=== PATIENT | male | born 1955 | race Caucasian/White ===

== ENCOUNTER → 2017-11-03 18:03 | Outpatient (CLI) | payer OTHER, SELFPAY ==
--- NOTE | 2017-11-03 18:11 | DI.RAD.S_ITS ---
PROCEDURE: XR HAND RT MIN 3V INDICATIONS: fall TECHNIQUE: 3 views of the hand(s) acquired. COMPARISON: None. FINDINGS: Bones: No fractures or dislocations. Carpal bones are normally aligned. No suspicious bony lesions. A relatively large ring overlies the right fourth proximal phalanx. This is the area of reported tenderness according to the x-ray technologist. Soft tissues: No suspicious soft tissue calcifications. IMPRESSION: No fracture found, no dislocation identified but the area of current tenderness is not as well visualized as would be optimal and due to a large ring that cannot be removed superimposed on the middle third diaphysis of the fourth proximal phalanx. Dictated by: Michael Perera M.D. on 11/03/2017 at 18:37 Approved by: Michael Perera M.D. on 11/03/2017 at 18:38
== END ==
PROVIDERS: Family Provider Family Medicine; PCP Family Medicine; Visit Provider Physician Assistant
DX: M79.641 Pain in right hand (principal)
CPT/HCPCS: 73130

== ENCOUNTER 2018-04-04 08:15 | Outpatient (RCR) | payer OTHER, SELFPAY ==
--- NOTE | 2018-03-02 17:05 | PT.OIE ---
Current Diagnoses Complete rotator cuff tear or rupture of left shoulder, not specified as traumatic (03/02/18) Provider Visit Care Team Role Provider Type Ben Chaney MD Family Provider Physician Primary Care Provider Specialty: Family Practice Address: [address] [place] [address], [address] Email: [email or web address] Osvaldo Schwab DO Attending Provider Non-Staff Specialty: Orthopedics Address: [address] [place] [address], [address] Email: Physical Therapy Initial Evaluation PT-OP-A Visit Information Start: 03/02/18 13:51 Freq: Status: Active Protocol: Document 03/02/18 14:41 EA (Rec: 03/02/18 14:41 EA [id number]) Out-Patient Physical Therapy Visit Information Visit Information Visit Type Initial Evaluation Visit Start Time 07:30 Visit Stop Time 08:05 Total Visit Minutes 35 Visit Number 1 Evaluation Information Evaluation Date 03/02/18 PT-OP-B Current Condition Start: 03/02/18 13:51 Freq: Status: Active Protocol: Document 03/02/18 15:40 EA (Rec: 03/07/18 16:10 EA [id number]) Current Condition History of Current Condition Onset Date 3 years ago Current Complaints Left shoulder localized pain History of Current Condition Present condition gradually worsened in the span of three years; unable to performed fitness exercise due to increased of shoulder pain. Patient had a formal PT last year with moderate improvement . Last summer pain intensifies and that brought his condition to ortho specialists and ordered MRI: medical reports reveals partial thickness tear to supra/infraspintus, biceps and slight labral tearing. Prior Treatments and Tests Cortisone shots October/2017 Future Testing and Treatments Planned Second cortisone shot if condition is not resolve through PT Treatment Goals Patient/Caregiver Goals To improve left shoulder stability and strength Prior Functional Status Baseline Function- ADL's Independent Baseline Function- Mobility Independent Baseline Function- Recreation/Hobbies Unable to perform shoulder exercises and push 2 years ago with no shoulder discomfort. Current Functional Impairments (Reported) Functional Limitations- ADL's Independent with slight overhead difficulty occasionally Functional Limitations- Recreation/ Unable to perform shoulder Hobbies exercises and push due to increased in pain. PT-OP-C Subjective Start: 03/02/18 13:51 Freq: Status: Active Protocol: Document 03/02/18 15:40 EA (Rec: 03/07/18 16:10 EA [id number]) OP-PT Subjective Patient Comments Patient Comments Pt would like to improve rotator cuff strength and stability Patient Reported Progress Same PT-OP-E Functional Tests Start: 03/02/18 13:51 Freq: Status: Active Protocol: Document 03/02/18 16:11 EA (Rec: 03/07/18 16:12 EA [id number]) Functional Tests Apley's Scratch Test Action 1: The subject is instructed to touch the opposite shoulder with his/her hand. This motion checks Glenohumeral adduction, internal rotation , horizontal adduction and scapular protraction Action 2: The subject is instructed to place his/her arm overhead and reach behind the neck to touch his/her upper back. This motion checks Glenohumeral abduction, external rotation and scapular upward rotation and elevation. Action 3: The subject puts his/her hand on the lower back and reaches upward as far as possible. This motion checks glenohumeral adduction, internal rotation and scapular retraction with downward rotation Action 1- Left WFL Action 1- Right WFL Action 2- Left T2 Action 2- Right T4 Action 3- Left T6 Action 3- Right T8 PT-OP-J Posture/Palpation/Skin Start: 03/02/18 13:51 Freq: Status: Active Protocol: Document 03/02/18 15:40 EA (Rec: 03/07/18 16:10 EA [id number]) Posture Evaluation Position Standing Evaluation View post/lat Head/C-Spine Posture Forward Head Shoulder Posture (L) Forward (R) Forward Scapula Posture (L) Protracted (R) Protracted Palpation Assessment Location One Palpation Location Supra/infra insertional site, upper traps Palpation Findings Tenderness PT-OP-K Range of Motion Start: 03/02/18 13:51 Freq: Status: Active Protocol: Document 03/02/18 15:40 EA (Rec: 03/07/18 16:10 EA [id number]) Shoulder Goniometric Range of Motion Shoulder Measured in Degrees Left Active Shoulder ROM WFL Yes PT-OP-L Special Tests Start: 03/02/18 13:51 Freq: Status: Active Protocol: Document 03/02/18 15:40 EA (Rec: 03/07/18 16:10 EA [id number]) Special Tests Shoulder Special Tests Yergason's Biceps Test Results negative Empty Can Test Results positive Clunk Test Test Results negative Elevation Impingement Test Results positive Drop Arm Rotator Cuff Test Results negative Neer Impingement Test Results positive Lift-Off Rotator Cuff Test Results neg PT-OP-M Strength Start: 03/02/18 13:51 Freq: Status: Active Protocol: Document 03/02/18 15:40 EA (Rec: 03/07/18 16:10 EA [id number]) Shoulder Strength Shoulder Manual Muscle Testing Left Flexion 4 Good Extension 5 Normal Abduction (C5) 4 Good Adduction 5 Normal External Rotation 4 Good Internal Rotation 4+ Good+ Right Flexion 5 Normal Extension 5 Normal Abduction (C5) 5 Normal Adduction 5 Normal External Rotation 5 Normal Internal Rotation 5 Normal Elbow/Forearm Strength Elbow and Forearm Manual Muscle Testing Left Reason Not Measured WFL PT-OP-Q Treatments Start: 03/02/18 13:51 Freq: Status: Active Protocol: Document 03/02/18 14:41 EA (Rec: 03/02/18 14:43 EA [id number]) Self-Care/Home Management Treatment Education Patient Education Home Exercise Program Pain Management Posture Safety PT-OP-T Assessment and Plan Start: 03/02/18 13:51 Freq: Status: Active Protocol: Document 03/02/18 14:41 EA (Rec: 03/02/18 14:43 EA [id number]) Physical Therapy Assessment Rehab Potential Rehabilitation Potential Good Evaluation Complexity Number of Personal Factors/Comorbidities 1-2 Number of Body Systems Impaired 1-2 Clinical Presentation at Evaluation Stable Impairments Impairments Pain Posture ROM Soft Tissue Mobility Strength Other Concerns Barriers to Rehabilitation Chronicity of the condition Goals Four Impairment Inability to perform shoulder fitness exercises [employer] Goal (LTG) Patient will perform shoulder fitnes exercises safely with no increase in symptoms. LTG Duration 4 wks Three Impairment Impaired head-shoulder posture [employer] Goal (LTG) Patient will demonstrates near to normal head shoulder posture to prevent shoulder dysfunction and muscular imbalance. LTG Duration 4 wks Two Impairment Impaired L shoulder strength Mcc Goal (LTG) Patient will increase L shoulder ABD/Flexors, external rotators, scap retractors by 1/2 grade to improve shoulder overhead function LTG Duration 4 wks One Impairment No HEP in place Mcc Goal (LTG) Patient will comply to recommended HEP and understand safety. LTG Duration 4 wks Progress Towards Goals Progress Towards Goals Progressing Toward Goals Assessment Summary Assessment Pleasant 62 y/o M patient with a referring diagnosis of rotator cuff tear. Today patient demonstrates signs and symptoms consistent with supraspinatus and infraspinatus dysfunction. Due to rotator cuff dysfunction, patient is minimally impaired with shoulder overhead motion with rotation and unable to perform shoulder fitness strengthening exercises due to increase in symptoms. In my professional opinion, patient would benefit with skilled PT to address the aforementioned issues. Physical Therapy Plan Frequency and Duration Frequency of Treatment 2x/Week Duration of Treatment 8 Plan of Care Start Date 03/02/18 Plan of Care End Date 04/27/18 Therapeutic Interventions Therapeutic Interventions Home Exercise Program Joint Mobilizations Manual Therapy Patient/Caregiver Education Self-Care/Home Management Soft Tissue Mobilization Taping Therapeutic Exercises Modalities Cold Pack/Ice Massage Electric Stimulation Hot Packs Ultrasound Next Visit Focus/Plan Next Note Type Treatment Note Next Visit Plan Scap strengthening. Deep tissue massage
--- NOTE | 2018-03-02 17:07 | PT.OPPOC ---
Current Diagnoses Complete rotator cuff tear or rupture of left shoulder, not specified as traumatic (03/02/18) Provider Visit Care Team Role Provider Type Ben Chaney MD Family Provider Physician Primary Care Provider Specialty: Family Practice Address: [address] [place] [address], [address] Email: [email or web address] Osvaldo Schwab DO Attending Provider Non-Staff Specialty: Orthopedics Address: [address] [place] [address], [address] Email: Plan Of Care PT-OP-T Assessment and Plan Start: 03/02/18 13:51 Freq: Status: Active Protocol: Document 03/02/18 14:41 EA (Rec: 03/02/18 14:43 EA [id number]) Physical Therapy Assessment Rehab Potential Rehabilitation Potential Good Evaluation Complexity Number of Personal Factors/Comorbidities 1-2 Number of Body Systems Impaired 1-2 Clinical Presentation at Evaluation Stable Impairments Impairments Pain Posture ROM Soft Tissue Mobility Strength Other Concerns Barriers to Rehabilitation Chronicity of the condition Goals Four Impairment Inability to perform shoulder fitness exercises Usp Goal (LTG) Patient will perform shoulder fitness exercises safely with no increase in symptoms. LTG Duration 4 wks Three Impairment Impaired head-shoulder posture Usp Goal (LTG) Patient will demonstrates near to normal head shoulder posture to prevent shoulder dysfunction and muscular imbalance. LTG Duration 4 wks Two Impairment Impaired L shoulder strength Usp Goal (LTG) Patient will increase L shoulder ABD/Flexors, external rotators, scap retractors by 1/2 grade to improve shoulder overhead function LTG Duration 4 wks One Impairment No HEP in place Usp Goal (LTG) Patient will comply to recommended HEP and understand safety. LTG Duration 4 wks Progress Towards Goals Progress Towards Goals Progressing Toward Goals Assessment Summary Assessment Pleasant 62 y/o M patient with a referring diagnosis of rotator cuff tear. Today patient demonstrates signs and symptoms consistent with supraspinatus and infraspinatus dysfunction. Due to rotator cuff dysfunction, patient is minimally impaired with shoulder overhead motion with rotation and unable to perform shoulder fitness strengthening exercises due to increase in symptoms. In my professional opinion, patient would benefit with skilled PT to address the aforementioned issues. Physical Therapy Plan Frequency and Duration Frequency of Treatment 2x/Week Duration of Treatment 8 Plan of Care Start Date 03/02/18 Plan of Care End Date 04/27/18 Therapeutic Interventions Therapeutic Interventions Home Exercise Program Joint Mobilizations Manual Therapy Patient/Caregiver Education Self-Care/Home Management Soft Tissue Mobilization Taping Therapeutic Exercises Modalities Cold Pack/Ice Massage Electric Stimulation Hot Packs Ultrasound Next Visit Focus/Plan Next Note Type Treatment Note Next Visit Plan Scap strengthening. Deep tissue massage Plan of Care Dates Plan of Care Start Date 03/02/18 Plan of Care End Date 04/27/18 Please Sign and Return: I have reviewed this Plan of Care and certify that the skilled therapy services above are required to meet the patient?s needs. Physician Signature Date Printed Name and Credentials Clinical Instructor Signature Printed Name and Credentials
--- NOTE | 2018-03-08 16:36 | PT.OTN ---
Current Diagnoses Complete rotator cuff tear or rupture of left shoulder, not specified as traumatic (03/08/18) Physical Therapy Treatment Note PT-OP-A Visit Information Start: 03/02/18 13:51 Freq: Status: Active Protocol: Document 03/08/18 15:58 EA (Rec: 03/08/18 16:36 EA [id number]) Out-Patient Physical Therapy Visit Information Visit Information Visit Type Treatment Note Visit Start Time 15:15 Visit Stop Time 16:10 Total Visit Minutes 55 Visit Number 2 PT-OP-B Current Condition Start: 03/02/18 13:51 Freq: Status: Active Protocol: Document 03/02/18 15:40 EA (Rec: 03/07/18 16:10 EA [id number]) Current Condition History of Current Condition Onset Date 3 years ago Current Complaints Left shoulder localized pain History of Current Condition Present condition gradually worsened in the span of three years; unable to performed fitness exercise due to increased of shoulder pain. Patient had a formal PT last year with moderate improvement . Last summer pain intesifies and that brought his condition to ortho specialists and ordered MRI: medical reports reveals partial thickness tear to supra/infraspintus, biceps and slight labral tearing. Prior Treatments and Tests Cortizone shots October/2017 Future Testing and Treatments Planned Second cortizone shot if condition is not resolve through PT Treatment Goals Patient/Caregiver Goals To improve left shoulder stability and strength Prior Functional Status Baseline Function- ADL's Independent Baseline Function- Mobility Independent Baseline Function- Recreation/Hobbies Unable to perform shoulder exercises and push 2 years ago with no shoulder discomfort. Current Functional Impairments (Reported) Functional Limitations- ADL's Independent with slight overhead difficulty occasionally Functional Limitations- Recreation/ Unable to perform shoulder Hobbies exercises and push due to increased in pain. PT-OP-C Subjective Start: 03/02/18 13:51 Freq: Status: Active Protocol: Document 03/08/18 15:58 EA (Rec: 03/08/18 16:36 EA [id number]) OP-PT Subjective Patient Comments Patient Comments Pt reports compliant with [facility] PT-OP-E Functional Tests Start: 03/02/18 13:51 Freq: Status: Active Protocol: Document 03/02/18 16:11 EA (Rec: 03/07/18 16:12 EA [id number]) Functional Tests Kellyey's Scratch Test Action 1: The subject is instructed to touch the opposite shoulder with his/her hand. This motion checks Glenohumeral adduction, internal rotation , horizontal adduction and scapular protraction Action 2: The subject is instructed to place his/her arm overhead and reach behind the neck to touch his/her upper back. This motion checks Glenohumeral abduction, external rotation and scapular upward rotation and elevation. Action 3: The subject puts his/her hand on the lower back and reaches upward as far as possible. This motion checks glenohumeral adduction, internal rotation and scapular retraction with downward rotation Action 1- Left WFL Action 1- Right WFL Action 2- Left T2 Action 2- Right T4 Action 3- Left T6 Action 3- Right T8 PT-OP-J Posture/Palpation/Skin Start: 03/02/18 13:51 Freq: Status: Active Protocol: Document 03/02/18 15:40 EA (Rec: 03/07/18 16:10 EA [id number]) Posture Evaluation Position Standing Evaluation View post/lat Head/C-Spine Posture Forward Head Shoulder Posture (L) Forward (R) Forward Scapula Posture (L) Protracted (R) Protracted Palpation Assessment Location One Palpation Location Supra/infra insertional site, upper traps Palpation Findings Tenderness PT-OP-K Range of Motion Start: 03/02/18 13:51 Freq: Status: Active Protocol: Document 03/02/18 15:40 EA (Rec: 03/07/18 16:10 EA [id number]) Shoulder Goniometric Range of Motion Shoulder Measured in Degrees Left Active Shoulder ROM WFL Yes PT-OP-L Special Tests Start: 03/02/18 13:51 Freq: Status: Active Protocol: Document 03/02/18 15:40 EA (Rec: 03/07/18 16:10 EA [id number]) Special Tests Shoulder Special Tests Yergason's Biceps Test Results negative Empty Can Test Results positive Clunk Test Test Results negative Elevation Impingement Test Results positive Drop Arm Rotator Cuff Test Results negative Neer Impingement Test Results positive Lift-Off Rotator Cuff Test Results neg PT-OP-M Strength Start: 03/02/18 13:51 Freq: Status: Active Protocol: Document 03/02/18 15:40 EA (Rec: 03/07/18 16:10 EA [id number]) Shoulder Strength Shoulder Manual Muscle Testing Left Flexion 4 Good Extension 5 Normal Abduction (C5) 4 Good Adduction 5 Normal External Rotation 4 Good Internal Rotation 4+ Good+ Right Flexion 5 Normal Extension 5 Normal Abduction (C5) 5 Normal Adduction 5 Normal External Rotation 5 Normal Internal Rotation 5 Normal Elbow/Forearm Strength Elbow and Forearm Manual Muscle Testing Left Reason Not Measured WFL PT-OP-Q Treatments Start: 03/02/18 13:51 Freq: Status: Active Protocol: Document 03/08/18 15:58 EA (Rec: 03/08/18 16:36 EA [id number]) Therapeutic Exercises Standing Exercises 6 Standing Exercise Name cable crossover Resistance 2 plates Reps/Minutes x 12 reps x 2 5 Standing Exercise Name Body blade side and front muultiple leora Reps/Minutes x 30sec hold x 3 each side 4 Standing Exercise Name T-bars shoulder EXT Resistance 4-8lbs Reps/Minutes x 12 reps x 3 sets 3 Standing Exercise Name D1 flex Side bilateral 2 Standing Exercise Name shoulder front raises Resistance 3-5# 1 Standing Exercise Name shoulder side raises Resistance 305# Reps/Minutes x 12 reps x 2 sets Manual Therapy Treatment Soft Tissue Mobilization 1 Body Location Anterior shoulder Mobilization Type Cross-Friction Rolling Sustained Pressure Intensity/Depth Moderate Body Position Supine PT-OP-R Modalities Start: 03/02/18 13:51 Freq: Status: Active Protocol: Document 03/08/18 15:58 EA (Rec: 03/08/18 16:36 EA [id number]) Electric Stimulation Electric Stimulation Interferential Current (IFC) Body Location left shoulder Intensity 15 Patient Position Supine Combined With Heat/Cold Cold Pack PT-OP-T Assessment and Plan Start: 03/02/18 13:51 Freq: Status: Active Protocol: Document 03/08/18 15:58 EA (Rec: 03/08/18 16:36 EA [id number]) Physical Therapy Assessment Assessment Summary Assessment Pt tolerated treatment well; weakness still noted to left shoulder abd/ER. Physical Therapy Plan Next Visit Focus/Plan Next Note Type Treatment Note Next Visit Plan Scap strengthening. Deep tissue massage
--- NOTE | 2018-03-16 17:04 | PT.OTN ---
Current Diagnoses Complete rotator cuff tear or rupture of left shoulder, not specified as traumatic (03/16/18) Physical Therapy Treatment Note PT-OP-A Visit Information Start: 03/02/18 13:51 Freq: Status: Active Protocol: Document 03/16/18 16:58 EA (Rec: 03/16/18 17:04 EA [id number]) Out-Patient Physical Therapy Visit Information Visit Information Visit Type Treatment Note Visit Start Time 16:00 Visit Stop Time 16:55 Total Visit Minutes 55 Visit Number 3 PT-OP-B Current Condition Start: 03/02/18 13:51 Freq: Status: Active Protocol: Document 03/02/18 15:40 EA (Rec: 03/07/18 16:10 EA [id number]) Current Condition History of Current Condition Onset Date 3 years ago Current Complaints Left shoulder localized pain History of Current Condition Present condition gradually worsened in the span of three years; unable to performed fitness exercise due to increased of shoulder pain. Patient had a formal PT last year with moderate improvement . Last summer pain intesifies and that brought his condition to ortho specialists and ordered MRI: medical reports reveals partial thickness tear to supra/infraspintus, biceps and slight labral tearing. Prior Treatments and Tests Cortizone shots October/2017 Future Testing and Treatments Planned Second cortizone shot if condition is not resolve through PT Treatment Goals Patient/Caregiver Goals To improve left shoulder stability and strength Prior Functional Status Baseline Function- ADL's Independent Baseline Function- Mobility Independent Baseline Function- Recreation/Hobbies Unable to perform shoulder exercises and push 2 years ago with no shoulder discomfort. Current Functional Impairments (Reported) Functional Limitations- ADL's Independent with slight overhead difficulty occasionally Functional Limitations- Recreation/ Unable to perform shoulder Hobbies exercises and push due to increased in pain. PT-OP-C Subjective Start: 03/02/18 13:51 Freq: Status: Active Protocol: Document 03/16/18 16:58 EA (Rec: 03/16/18 17:04 EA [id number]) OP-PT Subjective Patient Comments Patient Comments Pt reports compliant with HEP. PT-OP-E Functional Tests Start: 03/02/18 13:51 Freq: Status: Active Protocol: Document 03/02/18 16:11 EA (Rec: 03/07/18 16:12 EA [id number]) Functional Tests Kellyey's Scratch Test Action 1: The subject is instructed to touch the opposite shoulder with his/her hand. This motion checks Glenohumeral adduction, internal rotation , horizontal adduction and scapular protraction Action 2: The subject is instructed to place his/her arm overhead and reach behind the neck to touch his/her upper back. This motion checks Glenohumeral abduction, external rotation and scapular upward rotation and elevation. Action 3: The subject puts his/her hand on the lower back and reaches upward as far as possible. This motion checks glenohumeral adduction, internal rotation and scapular retraction with downward rotation Action 1- Left WFL Action 1- Right WFL Action 2- Left T2 Action 2- Right T4 Action 3- Left T6 Action 3- Right T8 PT-OP-J Posture/Palpation/Skin Start: 03/02/18 13:51 Freq: Status: Active Protocol: Document 03/02/18 15:40 EA (Rec: 03/07/18 16:10 EA [id number]) Posture Evaluation Position Standing Evaluation View post/lat Head/C-Spine Posture Forward Head Shoulder Posture (L) Forward (R) Forward Scapula Posture (L) Protracted (R) Protracted Palpation Assessment Location One Palpation Location Supra/infra insertional site, upper traps Palpation Findings Tenderness PT-OP-K Range of Motion Start: 03/02/18 13:51 Freq: Status: Active Protocol: Document 03/02/18 15:40 EA (Rec: 03/07/18 16:10 EA [id number]) Shoulder Goniometric Range of Motion Shoulder Measured in Degrees Left Active Shoulder ROM WFL Yes PT-OP-L Special Tests Start: 03/02/18 13:51 Freq: Status: Active Protocol: Document 03/02/18 15:40 EA (Rec: 03/07/18 16:10 EA [id number]) Special Tests Shoulder Special Tests Yergason's Biceps Test Results negative Empty Can Test Results positive Clunk Test Test Results negative Elevation Impingement Test Results positive Drop Arm Rotator Cuff Test Results negative Neer Impingement Test Results positive Lift-Off Rotator Cuff Test Results neg PT-OP-M Strength Start: 03/02/18 13:51 Freq: Status: Active Protocol: Document 03/02/18 15:40 EA (Rec: 03/07/18 16:10 EA [id number]) Shoulder Strength Shoulder Manual Muscle Testing Left Flexion 4 Good Extension 5 Normal Abduction (C5) 4 Good Adduction 5 Normal External Rotation 4 Good Internal Rotation 4+ Good+ Right Flexion 5 Normal Extension 5 Normal Abduction (C5) 5 Normal Adduction 5 Normal External Rotation 5 Normal Internal Rotation 5 Normal Elbow/Forearm Strength Elbow and Forearm Manual Muscle Testing Left Reason Not Measured WFL PT-OP-Q Treatments Start: 03/02/18 13:51 Freq: Status: Active Protocol: Document 03/16/18 16:58 EA (Rec: 03/16/18 17:04 EA [id number]) Gym Equipment Cable Column (Body Solid) Rows Resistance 4 plates Reps/Time 15 reps x 2 Lat Pull Down Details low traps isolated exercises Resistance 5 plates Reps/Time x 12 reps x 2 sets Therapeutic Exercises Prone Exercises 1 Prone Exercise Name T-ball: Y and T shoulder Resistance 3-4 lbs Reps/Minutes x 12 reps x 2 sets Standing Exercises 6 Standing Exercise Name cable crossover Resistance 2 plates Reps/Minutes x 12 reps x 2 5 Standing Exercise Name Body blade side and front muultiple leora Reps/Minutes x 30sec hold x 3 each side 4 Standing Exercise Name T-bars shoulder EXT Resistance 4-8lbs Reps/Minutes x 12 reps x 3 sets 3 Standing Exercise Name D1 flex Side bilateral 2 Standing Exercise Name shoulder front raises Resistance 3-5# 1 Standing Exercise Name shoulder side raises Resistance 4-7# Reps/Minutes x 12 reps x 2 sets Manual Therapy Treatment Soft Tissue Mobilization 1 Body Location Anterior shoulder Mobilization Type Cross-Friction Rolling Sustained Pressure Intensity/Depth Moderate Body Position Supine PT-OP-R Modalities Start: 03/02/18 13:51 Freq: Status: Active Protocol: Document 03/16/18 16:58 EA (Rec: 03/16/18 17:04 EA [id number]) Electric Stimulation Electric Stimulation Interferential Current (IFC) Body Location left shoulder Intensity 15 Patient Position Supine Combined With Heat/Cold Cold Pack PT-OP-T Assessment and Plan Start: 03/02/18 13:51 Freq: Status: Active Protocol: Document 03/16/18 16:58 EA (Rec: 03/16/18 17:04 EA [id number]) Physical Therapy Assessment Assessment Summary Assessment Improved strength with no discomfort during therex except with palpation to anterior shoulder; patient is progressing well. Physical Therapy Plan Next Visit Focus/Plan Next Note Type Treatment Note Next Visit Plan Scap strengthening. Deep tissue massage
--- NOTE | 2018-03-21 11:11 | PT.OTN ---
Current Diagnoses Complete rotator cuff tear or rupture of left shoulder, not specified as traumatic (03/21/18) Physical Therapy Treatment Note PT-OP-A Visit Information Start: 03/02/18 13:51 Freq: Status: Active Protocol: Document 03/21/18 08:56 EA (Rec: 03/21/18 09:01 EA [id number]) Out-Patient Physical Therapy Visit Information Visit Information Visit Type Treatment Note Visit Start Time 08:15 Visit Stop Time 09:10 Total Visit Minutes 55 Visit Number 4 PT-OP-B Current Condition Start: 03/02/18 13:51 Freq: Status: Active Protocol: Document 03/02/18 15:40 EA (Rec: 03/07/18 16:10 EA [id number]) Current Condition History of Current Condition Onset Date 3 years ago Current Complaints Left shoulder localized pain History of Current Condition Present condition gradually worsened in the span of three years; unable to performed fitness exercise due to increased of shoulder pain. Patient had a formal PT last year with moderate improvement . Last summer pain intesifies and that brought his condition to ortho specialists and ordered MRI: medical reports reveals partial thickness tear to supra/infraspintus, biceps and slight labral tearing. Prior Treatments and Tests Cortizone shots October/2017 Future Testing and Treatments Planned Second cortizone shot if condition is not resolve through PT Treatment Goals Patient/Caregiver Goals To improve left shoulder stability and strength Prior Functional Status Baseline Function- ADL's Independent Baseline Function- Mobility Independent Baseline Function- Recreation/Hobbies Unable to perform shoulder exercises and push 2 years ago with no shoulder discomfort. Current Functional Impairments (Reported) Functional Limitations- ADL's Independent with slight overhead difficulty occasionally Functional Limitations- Recreation/ Unable to perform shoulder Hobbies exercises and push due to increased in pain. PT-OP-C Subjective Start: 03/02/18 13:51 Freq: Status: Active Protocol: Document 03/21/18 08:56 EA (Rec: 03/21/18 09:01 EA [id number]) OP-PT Subjective Patient Comments Patient Comments Pt reports consistent with HEP ;denies increase in symptoms PT-OP-E Functional Tests Start: 03/02/18 13:51 Freq: Status: Active Protocol: Document 03/02/18 16:11 EA (Rec: 03/07/18 16:12 EA [id number]) Functional Tests Apley's Scratch Test Action 1: The subject is instructed to touch the opposite shoulder with his/her hand. This motion checks Glenohumeral adduction, internal rotation , horizontal adduction and scapular protraction Action 2: The subject is instructed to place his/her arm overhead and reach behind the neck to touch his/her upper back. This motion checks Glenohumeral abduction, external rotation and scapular upward rotation and elevation. Action 3: The subject puts his/her hand on the lower back and reaches upward as far as possible. This motion checks glenohumeral adduction, internal rotation and scapular retraction with downward rotation Action 1- Left WFL Action 1- Right WFL Action 2- Left T2 Action 2- Right T4 Action 3- Left T6 Action 3- Right T8 PT-OP-J Posture/Palpation/Skin Start: 03/02/18 13:51 Freq: Status: Active Protocol: Document 03/02/18 15:40 EA (Rec: 03/07/18 16:10 EA [id number]) Posture Evaluation Position Standing Evaluation View post/lat Head/C-Spine Posture Forward Head Shoulder Posture (L) Forward (R) Forward Scapula Posture (L) Protracted (R) Protracted Palpation Assessment Location One Palpation Location Supra/infra insertional site, upper traps Palpation Findings Tenderness PT-OP-K Range of Motion Start: 03/02/18 13:51 Freq: Status: Active Protocol: Document 03/02/18 15:40 EA (Rec: 03/07/18 16:10 EA [id number]) Shoulder Goniometric Range of Motion Shoulder Measured in Degrees Left Active Shoulder ROM WFL Yes PT-OP-L Special Tests Start: 03/02/18 13:51 Freq: Status: Active Protocol: Document 03/02/18 15:40 EA (Rec: 03/07/18 16:10 EA [id number]) Special Tests Shoulder Special Tests Yergason's Biceps Test Results negative Empty Can Test Results positive Clunk Test Test Results negative Elevation Impingement Test Results positive Drop Arm Rotator Cuff Test Results negative Neer Impingement Test Results positive Lift-Off Rotator Cuff Test Results neg PT-OP-M Strength Start: 03/02/18 13:51 Freq: Status: Active Protocol: Document 03/02/18 15:40 EA (Rec: 03/07/18 16:10 EA [id number]) Shoulder Strength Shoulder Manual Muscle Testing Left Flexion 4 Good Extension 5 Normal Abduction (C5) 4 Good Adduction 5 Normal External Rotation 4 Good Internal Rotation 4+ Good+ Right Flexion 5 Normal Extension 5 Normal Abduction (C5) 5 Normal Adduction 5 Normal External Rotation 5 Normal Internal Rotation 5 Normal Elbow/Forearm Strength Elbow and Forearm Manual Muscle Testing Left Reason Not Measured WFL PT-OP-Q Treatments Start: 03/02/18 13:51 Freq: Status: Active Protocol: Document 03/21/18 08:56 EA (Rec: 03/21/18 09:01 EA [id number]) Cardio Equipment Upper Body Ergometer (UBE) Duration (Minutes) 5 Height 7 Gym Equipment Cable Column (Body Solid) Rows Resistance 5 plates Reps/Time 15 reps x 2 Lat Pull Down Details low traps isolated exercises Resistance 5 plates Reps/Time x 12 reps x 2 sets Therapeutic Exercises Prone Exercises 2 Prone Exercise Name Prone on bench: Shoulder push- up Reps/Minutes 5SH x 5 reps x 2 sets 1 Prone Exercise Name T-ball: Y and T shoulder Resistance 3-4 lbs Reps/Minutes x 12 reps x 2 sets Sitting Exercises 1 Sitting Exercise Name Elbow supported isolated shldr ER Side left Resistance 4-6# Reps/Minutes x12 x 3 sets Standing Exercises 6 Standing Exercise Name cable crossover Resistance 2 -3plates Reps/Minutes x 12 reps x 2 5 Standing Exercise Name Body blade side and front muultiple leora Reps/Minutes x 30sec hold x 3 each side 4 Standing Exercise Name T-bars shoulder EXT Resistance 4-8lbs Reps/Minutes x 12 reps x 3 sets 3 Standing Exercise Name D1 flex Side bilateral Resistance 5-6# 2 Standing Exercise Name shoulder front raises Resistance 3-5# 1 Standing Exercise Name shoulder side raises Resistance 4-7# Reps/Minutes x 12 reps x 2 sets Manual Therapy Treatment Soft Tissue Mobilization 1 Body Location Anterior shoulder Mobilization Type Cross-Friction Rolling Sustained Pressure Intensity/Depth Moderate Body Position Supine PT-OP-R Modalities Start: 03/02/18 13:51 Freq: Status: Active Protocol: Document 03/21/18 08:56 EA (Rec: 03/21/18 09:01 EA [id number]) Electric Stimulation Electric Stimulation Interferential Current (IFC) Body Location left shoulder Intensity 15 Patient Position Supine Combined With Heat/Cold Cold Pack PT-OP-T Assessment and Plan Start: 03/02/18 13:51 Freq: Status: Active Protocol: Document 03/21/18 08:56 EA (Rec: 03/21/18 09:01 EA [id number]) Physical Therapy Assessment Assessment Summary Assessment Tolerated treatment well even with muscle fatigue. Patient cont. to progress. Physical Therapy Plan Next Visit Focus/Plan Next Note Type Treatment Note Next Visit Plan Scap strengthening. Deep tissue massage
--- NOTE | 2018-03-23 10:33 | PT.OTN ---
Current Diagnoses Complete rotator cuff tear or rupture of left shoulder, not specified as traumatic (03/23/18) Physical Therapy Treatment Note PT-OP-A Visit Information Start: 03/02/18 13:51 Freq: Status: Active Protocol: Document 03/23/18 09:04 EA (Rec: 03/23/18 09:41 EA [id number]) Out-Patient Physical Therapy Visit Information Visit Information Visit Type Treatment Note Visit Start Time 08:15 Visit Stop Time 09:08 Total Visit Minutes 53 Visit Number 5 PT-OP-B Current Condition Start: 03/02/18 13:51 Freq: Status: Active Protocol: Document 03/02/18 15:40 EA (Rec: 03/07/18 16:10 EA [id number]) Current Condition History of Current Condition Onset Date 3 years ago Current Complaints Left shoulder localized pain History of Current Condition Present condition gradually worsened in the span of three years; unable to performed fitness exercise due to increased of shoulder pain. Patient had a formal PT last year with moderate improvement . Last summer pain intesifies and that brought his condition to ortho specialists and ordered MRI: medical reports reveals partial thickness tear to supra/infraspintus, biceps and slight labral tearing. Prior Treatments and Tests Cortizone shots October/2017 Future Testing and Treatments Planned Second cortizone shot if condition is not resolve through PT Treatment Goals Patient/Caregiver Goals To improve left shoulder stability and strength Prior Functional Status Baseline Function- ADL's Independent Baseline Function- Mobility Independent Baseline Function- Recreation/Hobbies Unable to perform shoulder exercises and push 2 years ago with no shoulder discomfort. Current Functional Impairments (Reported) Functional Limitations- ADL's Independent with slight overhead difficulty occasionally Functional Limitations- Recreation/ Unable to perform shoulder Hobbies exercises and push due to increased in pain. PT-OP-C Subjective Start: 03/02/18 13:51 Freq: Status: Active Protocol: Document 03/23/18 09:04 EA (Rec: 03/23/18 09:41 EA [id number]) OP-PT Subjective Patient Comments Patient Comments Pt reports left shoulder is quite sore after last session but is getting better now; states consistent with HEP. PT-OP-E Functional Tests Start: 03/02/18 13:51 Freq: Status: Active Protocol: Document 03/02/18 16:11 EA (Rec: 03/07/18 16:12 EA [id number]) Functional Tests Apley's Scratch Test Action 1: The subject is instructed to touch the opposite shoulder with his/her hand. This motion checks Glenohumeral adduction, internal rotation , horizontal adduction and scapular protraction Action 2: The subject is instructed to place his/her arm overhead and reach behind the neck to touch his/her upper back. This motion checks Glenohumeral abduction, external rotation and scapular upward rotation and elevation. Action 3: The subject puts his/her hand on the lower back and reaches upward as far as possible. This motion checks glenohumeral adduction, internal rotation and scapular retraction with downward rotation Action 1- Left WFL Action 1- Right WFL Action 2- Left T2 Action 2- Right T4 Action 3- Left T6 Action 3- Right T8 PT-OP-J Posture/Palpation/Skin Start: 03/02/18 13:51 Freq: Status: Active Protocol: Document 03/02/18 15:40 EA (Rec: 03/07/18 16:10 EA [id number]) Posture Evaluation Position Standing Evaluation View post/lat Head/C-Spine Posture Forward Head Shoulder Posture (L) Forward (R) Forward Scapula Posture (L) Protracted (R) Protracted Palpation Assessment Location One Palpation Location Supra/infra insertional site, upper traps Palpation Findings Tenderness PT-OP-K Range of Motion Start: 03/02/18 13:51 Freq: Status: Active Protocol: Document 03/02/18 15:40 EA (Rec: 03/07/18 16:10 EA [id number]) Shoulder Goniometric Range of Motion Shoulder Measured in Degrees Left Active Shoulder ROM WFL Yes PT-OP-L Special Tests Start: 03/02/18 13:51 Freq: Status: Active Protocol: Document 03/02/18 15:40 EA (Rec: 03/07/18 16:10 EA [id number]) Special Tests Shoulder Special Tests Yergason's Biceps Test Results negative Empty Can Test Results positive Clunk Test Test Results negative Elevation Impingement Test Results positive Drop Arm Rotator Cuff Test Results negative Neer Impingement Test Results positive Lift-Off Rotator Cuff Test Results neg PT-OP-M Strength Start: 03/02/18 13:51 Freq: Status: Active Protocol: Document 03/02/18 15:40 EA (Rec: 03/07/18 16:10 EA [id number]) Shoulder Strength Shoulder Manual Muscle Testing Left Flexion 4 Good Extension 5 Normal Abduction (C5) 4 Good Adduction 5 Normal External Rotation 4 Good Internal Rotation 4+ Good+ Right Flexion 5 Normal Extension 5 Normal Abduction (C5) 5 Normal Adduction 5 Normal External Rotation 5 Normal Internal Rotation 5 Normal Elbow/Forearm Strength Elbow and Forearm Manual Muscle Testing Left Reason Not Measured WFL PT-OP-Q Treatments Start: 03/02/18 13:51 Freq: Status: Active Protocol: Document 03/23/18 09:04 EA (Rec: 03/23/18 09:41 EA [id number]) Cardio Equipment Upper Body Ergometer (UBE) Duration (Minutes) 5 Height 7 Gym Equipment Cable Column (Body Solid) Rows Resistance 5-6 plates Reps/Time 15 reps x 2 Lat Pull Down Details low traps isolated exercises Resistance 5-7plates Reps/Time x 12 reps x 2 sets Therapeutic Exercises Prone Exercises 2 Prone Exercise Name Prone on bench: Shoulder push- up Reps/Minutes 5SH x 5 reps x 2 sets 1 Prone Exercise Name T-ball: Y and T shoulder Resistance 4-5 lbs Reps/Minutes x 12 reps x 2 sets Sitting Exercises 1 Sitting Exercise Name Elbow supported isolated shldr ER Side left Resistance 4-6# Reps/Minutes x12 x 3 sets Standing Exercises 5 Standing Exercise Name Body blade side and front muultiple leora Reps/Minutes x 30sec hold x 3 each side 4 Standing Exercise Name T-bars shoulder EXT Resistance 4-8lbs Reps/Minutes x 12 reps x 3 sets 3 Standing Exercise Name D1 flex Side bilateral Resistance 5-6# 2 Standing Exercise Name shoulder front raises Resistance 3-5# 1 Standing Exercise Name shoulder side raises Resistance 4-7# Reps/Minutes x 8-10-12 reps x 3 sets Comments 3rd set increased shoulder pain Manual Therapy Treatment Soft Tissue Mobilization 1 Body Location Anterior shoulder Mobilization Type Cross-Friction Rolling Sustained Pressure Intensity/Depth Moderate Body Position Supine PT-OP-R Modalities Start: 03/02/18 13:51 Freq: Status: Active Protocol: Document 03/23/18 09:04 EA (Rec: 03/23/18 09:41 EA [id number]) Electric Stimulation Electric Stimulation Interferential Current (IFC) Body Location left shoulder Intensity 15 Patient Position Supine Combined With Heat/Cold Cold Pack PT-OP-T Assessment and Plan Start: 03/02/18 13:51 Freq: Status: Active Protocol: Document 03/23/18 09:04 SANTO (Rec: 03/23/18 09:41 SANTO [id number]) Physical Therapy Assessment Assessment Summary Assessment Pt tolerated treatment with mild discomfort toward side raises exercises on high on last sets. No signs of loss of function with quick assessment. Patient will cont. to benefit with current plan. Physical Therapy Plan Next Visit Focus/Plan Next Note Type Treatment Note Next Visit Plan Scap strengthening. Deep tissue massage
--- NOTE | 2018-03-31 16:06 | PT.OTN ---
Current Diagnoses Complete rotator cuff tear or rupture of left shoulder, not specified as traumatic (03/31/18) Physical Therapy Treatment Note PT-OP-A Visit Information Start: 03/02/18 13:51 Freq: Status: Active Protocol: Document 03/31/18 16:00 EA (Rec: 03/31/18 16:06 EA [id number]) Out-Patient Physical Therapy Visit Information Visit Information Visit Type Treatment Note Visit Start Time 15:15 Visit Stop Time 16:55 Total Visit Minutes 55 Visit Number 10/05 PT-OP-B Current Condition Start: 03/02/18 13:51 Freq: Status: Active Protocol: Document 03/02/18 15:40 EA (Rec: 03/07/18 16:10 EA [id number]) Current Condition History of Current Condition Onset Date 3 years ago Current Complaints Left shoulder localized pain History of Current Condition Present condition gradually worsened in the span of three years; unable to performed fitness exercise due to increased of shoulder pain. Patient had a formal PT last year with moderate improvement . Last summer pain intesifies and that brought his condition to ortho specialists and ordered MRI: medical reports reveals partial thickness tear to supra/infraspintus, biceps and slight labral tearing. Prior Treatments and Tests Cortizone shots October/2017 Future Testing and Treatments Planned Second cortizone shot if condition is not resolve through PT Treatment Goals Patient/Caregiver Goals To improve left shoulder stability and strength Prior Functional Status Baseline Function- ADL's Independent Baseline Function- Mobility Independent Baseline Function- Recreation/Hobbies Unable to perform shoulder exercises and push 2 years ago with no shoulder discomfort. Current Functional Impairments (Reported) Functional Limitations- ADL's Independent with slight overhead difficulty occasionally Functional Limitations- Recreation/ Unable to perform shoulder Hobbies exercises and push due to increased in pain. PT-OP-C Subjective Start: 03/02/18 13:51 Freq: Status: Active Protocol: Document 03/31/18 16:00 EA (Rec: 03/31/18 16:06 EA [id number]) OP-PT Subjective Patient Comments Patient Comments Pt reports compliant with HEP and feels left shoulder is getting stronger. PT-OP-E Functional Tests Start: 03/02/18 13:51 Freq: Status: Active Protocol: Document 03/02/18 16:11 EA (Rec: 03/07/18 16:12 EA [id number]) Functional Tests Apley's Scratch Test Action 1: The subject is instructed to touch the opposite shoulder with his/her hand. This motion checks Glenohumeral adduction, internal rotation , horizontal adduction and scapular protraction Action 2: The subject is instructed to place his/her arm overhead and reach behind the neck to touch his/her upper back. This motion checks Glenohumeral abduction, external rotation and scapular upward rotation and elevation. Action 3: The subject puts his/her hand on the lower back and reaches upward as far as possible. This motion checks glenohumeral adduction, internal rotation and scapular retraction with downward rotation Action 1- Left WFL Action 1- Right WFL Action 2- Left T2 Action 2- Right T4 Action 3- Left T6 Action 3- Right T8 PT-OP-J Posture/Palpation/Skin Start: 03/02/18 13:51 Freq: Status: Active Protocol: Document 03/02/18 15:40 EA (Rec: 03/07/18 16:10 EA [id number]) Posture Evaluation Position Standing Evaluation View post/lat Head/C-Spine Posture Forward Head Shoulder Posture (L) Forward (R) Forward Scapula Posture (L) Protracted (R) Protracted Palpation Assessment Location One Palpation Location Supra/infra insertional site, upper traps Palpation Findings Tenderness PT-OP-K Range of Motion Start: 03/02/18 13:51 Freq: Status: Active Protocol: Document 03/02/18 15:40 EA (Rec: 03/07/18 16:10 EA [id number]) Shoulder Goniometric Range of Motion Shoulder Measured in Degrees Left Active Shoulder ROM WFL Yes PT-OP-L Special Tests Start: 03/02/18 13:51 Freq: Status: Active Protocol: Document 03/02/18 15:40 EA (Rec: 03/07/18 16:10 EA [id number]) Special Tests Shoulder Special Tests Yergason's Biceps Test Results negative Empty Can Test Results positive Clunk Test Test Results negative Elevation Impingement Test Results positive Drop Arm Rotator Cuff Test Results negative Neer Impingement Test Results positive Lift-Off Rotator Cuff Test Results neg PT-OP-M Strength Start: 03/02/18 13:51 Freq: Status: Active Protocol: Document 03/02/18 15:40 EA (Rec: 03/07/18 16:10 EA [id number]) Shoulder Strength Shoulder Manual Muscle Testing Left Flexion 4 Good Extension 5 Normal Abduction (C5) 4 Good Adduction 5 Normal External Rotation 4 Good Internal Rotation 4+ Good+ Right Flexion 5 Normal Extension 5 Normal Abduction (C5) 5 Normal Adduction 5 Normal External Rotation 5 Normal Internal Rotation 5 Normal Elbow/Forearm Strength Elbow and Forearm Manual Muscle Testing Left Reason Not Measured WFL PT-OP-Q Treatments Start: 03/02/18 13:51 Freq: Status: Active Protocol: Document 03/31/18 16:00 EA (Rec: 03/31/18 16:06 EA [id number]) Cardio Equipment Upper Body Ergometer (UBE) Duration (Minutes) 5 Height 7 Other mod/high resist Gym Equipment Cable Column (Body Solid) Rows Resistance 5-6 plates Reps/Time 15 reps x 2 Lat Pull Down Details low traps isolated exercises Resistance 5-7plates Reps/Time x 12 reps x 2 sets Therapeutic Exercises Prone Exercises 2 Prone Exercise Name Prone on bench: Shoulder push- up Reps/Minutes 5SH x 5 reps x 2 sets 1 Prone Exercise Name T-ball: Y and T shoulder Resistance 4-6 lbs Reps/Minutes x 12 reps x 2 sets Sitting Exercises 1 Sitting Exercise Name Elbow supported isolated shldr ER Side left Resistance 4-6# Reps/Minutes x12 x 3 sets Standing Exercises 6 Standing Exercise Name cable crossover Resistance 2 -3plates Reps/Minutes x 12 reps x 2 5 Standing Exercise Name Body blade side and front muultiple leora Reps/Minutes x 30sec hold x 3 each side 4 Standing Exercise Name T-bars shoulder EXT Resistance 10lbs Reps/Minutes x 12 reps x 3 sets 3 Standing Exercise Name D1 flex/ext Side bilateral Resistance 5-8# 2 Standing Exercise Name shoulder front raises Resistance 3-5# 1 Standing Exercise Name shoulder side raises Resistance 4-8# Reps/Minutes x 8-10-12 reps x 3 sets Manual Therapy Treatment Soft Tissue Mobilization 1 Body Location Anterior shoulder/ scapular/IS /SI Mobilization Type Cross-Friction Rolling Sustained Pressure Intensity/Depth Moderate Body Position Supine PT-OP-R Modalities Start: 03/02/18 13:51 Freq: Status: Active Protocol: Document 03/31/18 16:00 EA (Rec: 03/31/18 16:06 EA [id number]) Electric Stimulation Electric Stimulation Interferential Current (IFC) Body Location left shoulder Intensity 15 Patient Position Supine Combined With Heat/Cold Cold Pack PT-OP-T Assessment and Plan Start: 03/02/18 13:51 Freq: Status: Active Protocol: Document 03/31/18 16:00 EA (Rec: 03/31/18 16:06 EA [id number]) Physical Therapy Assessment Assessment Summary Assessment Pt is progressing well; no sharp pain noted at this time even with increasing resistance . Pt cont. to progress.
--- NOTE | 2018-04-04 12:13 | PT.OTN ---
Current Diagnoses Complete rotator cuff tear or rupture of left shoulder, not specified as traumatic (04/04/18) Physical Therapy Treatment Note PT-OP-A Visit Information Start: 03/02/18 13:51 Freq: Status: Active Protocol: Document 04/04/18 08:57 EA (Rec: 04/04/18 09:02 EA [id number]) Out-Patient Physical Therapy Visit Information Visit Information Visit Type Treatment Note Visit Start Time 08:15 Visit Stop Time 09:08 Total Visit Minutes 53 Visit Number 11/04 PT-OP-B Current Condition Start: 03/02/18 13:51 Freq: Status: Active Protocol: Document 03/02/18 15:40 EA (Rec: 03/07/18 16:10 EA [id number]) Current Condition History of Current Condition Onset Date 3 years ago Current Complaints Left shoulder localized pain History of Current Condition Present condition gradually worsened in the span of three years; unable to performed fitness exercise due to increased of shoulder pain. Patient had a formal PT last year with moderate improvement . Last summer pain intesifies and that brought his condition to ortho specialists and ordered MRI: medical reports reveals partial thickness tear to supra/infraspintus, biceps and slight labral tearing. Prior Treatments and Tests Cortizone shots October/2017 Future Testing and Treatments Planned Second cortizone shot if condition is not resolve through PT Treatment Goals Patient/Caregiver Goals To improve left shoulder stability and strength Prior Functional Status Baseline Function- ADL's Independent Baseline Function- Mobility Independent Baseline Function- Recreation/Hobbies Unable to perform shoulder exercises and push 2 years ago with no shoulder discomfort. Current Functional Impairments (Reported) Functional Limitations- ADL's Independent with slight overhead difficulty occasionally Functional Limitations- Recreation/ Unable to perform shoulder Hobbies exercises and push due to increased in pain. 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 Patient Reported Progress Improving PT-OP-E Functional Tests Start: 03/02/18 13:51 Freq: Status: Active Protocol: Document 03/02/18 16:11 EA (Rec: 03/07/18 16:12 EA [id number]) Functional Tests Apley's Scratch Test Action 1: The subject is instructed to touch the opposite shoulder with his/her hand. This motion checks Glenohumeral adduction, internal rotation , horizontal adduction and scapular protraction Action 2: The subject is instructed to place his/her arm overhead and reach behind the neck to touch his/her upper back. This motion checks Glenohumeral abduction, external rotation and scapular upward rotation and elevation. Action 3: The subject puts his/her hand on the lower back and reaches upward as far as possible. This motion checks glenohumeral adduction, internal rotation and scapular retraction with downward rotation Action 1- Left WFL Action 1- Right WFL Action 2- Left T2 Action 2- Right T4 Action 3- Left T6 Action 3- Right T8 PT-OP-J Posture/Palpation/Skin Start: 03/02/18 13:51 Freq: Status: Active Protocol: Document 03/02/18 15:40 EA (Rec: 03/07/18 16:10 EA [id number]) Posture Evaluation Position Standing Evaluation View post/lat Head/C-Spine Posture Forward Head Shoulder Posture (L) Forward (R) Forward Scapula Posture (L) Protracted (R) Protracted Palpation Assessment Location One Palpation Location Supra/infra insertional site, upper traps Palpation Findings Tenderness PT-OP-K Range of Motion Start: 03/02/18 13:51 Freq: Status: Active Protocol: Document 03/02/18 15:40 EA (Rec: 03/07/18 16:10 EA [id number]) Shoulder Goniometric Range of Motion Shoulder Measured in Degrees Left Active Shoulder ROM WFL Yes PT-OP-L Special Tests Start: 03/02/18 13:51 Freq: Status: Active Protocol: Document 03/02/18 15:40 EA (Rec: 03/07/18 16:10 EA [id number]) Special Tests Shoulder Special Tests Yergason's Biceps Test Results negative Empty Can Test Results positive Clunk Test Test Results negative Elevation Impingement Test Results positive Drop Arm Rotator Cuff Test Results negative Neer Impingement Test Results positive Lift-Off Rotator Cuff Test Results neg PT-OP-M Strength Start: 03/02/18 13:51 Freq: Status: Active Protocol: Document 03/02/18 15:40 EA (Rec: 03/07/18 16:10 EA [id number]) Shoulder Strength Shoulder Manual Muscle Testing Left Flexion 4 Good Extension 5 Normal Abduction (C5) 4 Good Adduction 5 Normal External Rotation 4 Good Internal Rotation 4+ Good+ Right Flexion 5 Normal Extension 5 Normal Abduction (C5) 5 Normal Adduction 5 Normal External Rotation 5 Normal Internal Rotation 5 Normal Elbow/Forearm Strength Elbow and Forearm Manual Muscle Testing Left Reason Not Measured WFL PT-OP-Q Treatments Start: 03/02/18 13:51 Freq: Status: Active Protocol: Document 04/04/18 08:57 EA (Rec: 04/04/18 09:02 EA [id number]) Therapeutic Exercises Prone Exercises 2 Prone Exercise Name Prone on bench: Shoulder push- up Reps/Minutes 5SH x 5 reps x 2 sets 1 Prone Exercise Name T-ball: Y and T shoulder Resistance 4-6 lbs Reps/Minutes x 12 reps x 2 sets Sitting Exercises 1 Sitting Exercise Name Elbow supported isolated shldr ER Side left Resistance 4-6# Reps/Minutes x12 x 3 sets Standing Exercises 6 Standing Exercise Name cable crossover Resistance 2 -3plates Reps/Minutes x 12 reps x 2 5 Standing Exercise Name Body blade side and front muultiple leora Reps/Minutes x 30sec hold x 3 each side 3 Standing Exercise Name D1 flex/ext Side left Resistance 10# plates/cable Reps/Minutes x 12 reps x 2 sets Comments knees bent 2 Standing Exercise Name shoulder front raises Resistance 3-5# 1 Standing Exercise Name shoulder side raises Resistance 6-10# Reps/Minutes x 8-10-12 reps x 3 sets Manual Therapy Treatment Soft Tissue Mobilization 1 Body Location Anterior shoulder/ scapular/IS /SI Mobilization Type Cross-Friction Rolling Sustained Pressure Intensity/Depth Moderate Body Position Supine PT-OP-R Modalities Start: 03/02/18 13:51 Freq: Status: Active Protocol: Document 04/04/18 08:57 EA (Rec: 04/04/18 09:02 EA [id number]) Electric Stimulation Electric Stimulation Interferential Current (IFC) Body Location left shoulder Intensity 15 Patient Position Supine Combined With Heat/Cold Cold Pack PT-OP-T Assessment and Plan Start: 03/02/18 13:51 Freq: Status: Active Protocol: Document 12/10/18 08:57 SANTO (Rec: 04/04/18 09:02 EA [id number]) Physical Therapy Assessment Assessment Summary Assessment Pt tolerated treatment with no sharp pain noted during exercises. Patient is progressing. Physical Therapy Plan Next Visit Focus/Plan Next Note Type Treatment Note Next Visit Plan Scap strengthening. Deep tissue massage
--- NOTE | 2018-06-09 14:00 | PT.OPDS ---
Current Diagnoses Complete rotator cuff tear or rupture of left shoulder, not specified as traumatic (04/04/18) Provider Visit Care Team Role Provider Type Ben Chaney MD Family Provider Non-Staff Primary Care Provider Specialty: Family Practice Address: [address] [place] [address], [address], [place], [address] Email: Osvaldo Schwab DO Attending Provider Non-Staff Specialty: Orthopedics Address: [address] [facility], [place], [address] Email: Visit Number Visit Number 11/04 Discharge Summary PT-OP-B Current Condition Start: 03/02/18 13:51 Freq: Status: Active Protocol: Document 03/02/18 15:40 EA (Rec: 03/07/18 16:10 EA [id number]) Current Condition History of Current Condition Onset Date 3 years ago Current Complaints Left shoulder localized pain History of Current Condition Present condition gradually worsened in the span of three years; unable to performed fitness exercise due to increased of shoulder pain. Patient had a formal PT last year with moderate improvement . Last summer pain intesifies and that brought his condition to ortho specialists and ordered MRI: medical reports reveals partial thickness tear to supra/infraspintus, biceps and slight labral tearing. Prior Treatments and Tests Cortizone shots October/2017 Future Testing and Treatments Planned Second cortizone shot if condition is not resolve through PT Treatment Goals Patient/Caregiver Goals To improve left shoulder stability and strength Prior Functional Status Baseline Function- ADL's Independent Baseline Function- Mobility Independent Baseline Function- Recreation/Hobbies Unable to perform shoulder exercises and push 2 years ago with no shoulder discomfort. Current Functional Impairments (Reported) Functional Limitations- ADL's Independent with slight overhead difficulty occasionally Functional Limitations- Recreation/ Unable to perform shoulder Hobbies exercises and push due to increased in pain. PT-OP-C Subjective Start: 03/02/18 13:51 Freq: Status: Active Protocol: Document 06/09/18 13:58 EA (Rec: 06/09/18 14:00 EA [id number]) OP-PT Subjective Patient Comments Patient Comments By phonoe conversation; patient reports that he has been following recommended HEP and shoulder is getting better; states he is okay discharge and will get another referral from the doctor if required. Patient Reported Progress Improving PT-OP-E Functional Tests Start: 03/02/18 13:51 Freq: Status: Active Protocol: Document 03/02/18 16:11 EA (Rec: 03/07/18 16:12 EA [id number]) Functional Tests Apley's Scratch Test Action 1: The subject is instructed to touch the opposite shoulder with his/her hand. This motion checks Glenohumeral adduction, internal rotation , horizontal adduction and scapular protraction Action 2: The subject is instructed to place his/her arm overhead and reach behind the neck to touch his/her upper back. This motion checks Glenohumeral abduction, external rotation and scapular upward rotation and elevation. Action 3: The subject puts his/her hand on the lower back and reaches upward as far as possible. This motion checks glenohumeral adduction, internal rotation and scapular retraction with downward rotation Action 1- Left WFL Action 1- Right WFL Action 2- Left T2 Action 2- Right T4 Action 3- Left T6 Action 3- Right T8 PT-OP-J Posture/Palpation/Skin Start: 03/02/18 13:51 Freq: Status: Active Protocol: Document 03/02/18 15:40 EA (Rec: 03/07/18 16:10 EA [id number]) Posture Evaluation Position Standing Evaluation View post/lat Head/C-Spine Posture Forward Head Shoulder Posture (L) Forward (R) Forward Scapula Posture (L) Protracted (R) Protracted Palpation Assessment Location One Palpation Location Supra/infra insertional site, upper traps Palpation Findings Tenderness PT-OP-K Range of Motion Start: 03/02/18 13:51 Freq: Status: Active Protocol: Document 03/02/18 15:40 EA (Rec: 03/07/18 16:10 EA [id number]) Shoulder Goniometric Range of Motion Shoulder Measured in Degrees Left Active Shoulder ROM WFL Yes PT-OP-L Special Tests Start: 03/02/18 13:51 Freq: Status: Active Protocol: Document 03/02/18 15:40 EA (Rec: 03/07/18 16:10 EA [id number]) Special Tests Shoulder Special Tests Yergason's Biceps Test Results negative Empty Can Test Results positive Clunk Test Test Results negative Elevation Impingement Test Results positive Drop Arm Rotator Cuff Test Results negative Neer Impingement Test Results positive Lift-Off Rotator Cuff Test Results neg PT-OP-M Strength Start: 03/02/18 13:51 Freq: Status: Active Protocol: Document 03/02/18 15:40 EA (Rec: 03/07/18 16:10 EA [id number]) Shoulder Strength Shoulder Manual Muscle Testing Left Flexion 4 Good Extension 5 Normal Abduction (C5) 4 Good Adduction 5 Normal External Rotation 4 Good Internal Rotation 4+ Good+ Right Flexion 5 Normal Extension 5 Normal Abduction (C5) 5 Normal Adduction 5 Normal External Rotation 5 Normal Internal Rotation 5 Normal Elbow/Forearm Strength Elbow and Forearm Manual Muscle Testing Left Reason Not Measured WFL PT-OP-T Assessment and Plan Start: 03/02/18 13:51 Freq: Status: Active Protocol: Document 06/09/18 13:58 EA (Rec: 06/09/18 14:00 EA [id number]) Physical Therapy Assessment Assessment Summary Assessment Discharge to skilled PT upon patient's request. Physical Therapy Plan Discharge Physical Therapy Discharge Reasons Patient Request
== END 2018-07-12 11:16 ==
LOC: PHYS 08:15
PROVIDERS: Family Provider Family Medicine; PCP Family Medicine; Visit Provider Orthopaedic Surgery
DX: M75.122 Complete rotator cuff tear or rupture of left shoulder, not specified as traumatic (principal)
CPT/HCPCS: 97014; 97110; 97140; 97161; 97535; G0283

== ENCOUNTER → 2018-07-19 07:25 | Outpatient (CLI) | payer OTHER, SELFPAY ==
[2018-07-19 09:12] LABS: Hematocrit 45.2 % (41-53); Hemoglobin 15.8 g/dL (13.5-17.5); Mean Corpuscular HGB Conc 34.8 % (30-36); Mean Corpuscular Hemoglobin 31.7 PG (26-34); Platelet Count 196 X10^3/uL (150-400); Red Blood Cell Count 4.97 X10^6/uL (4.5-5.9); White Blood Cell Count 6.6 X10^3/uL (4.5-11.0)
[2018-07-19 09:53] LABS: Alanine Aminotransferase 32 IU/L (21-72); Albumin 4.4 g/dL (3.5-5.0); Albumin Globulin Ratio 1.5 (1.0-2.8); Alkaline Phosphatase 68 U/L (38-126); Aspartate Aminotransferase 26 IU/L (17-59); Bilirubin Total 0.5 mg/dL (0.2-1.3); Blood Urea Nitrogen 18 mg/dL (9-20); Calcium 9.6 mg/dL (8.4-10.2); Carbon Dioxide 28 mmol/L (22-32); Chloride 102 mmol/L (98-107); Cholesterol 123 mg/dL (140-199); Estimated Glomerular Filt Rate > 60.0 mL/min (>60); Globulin 2.9 g/dL (1.7-4.1); Glucose 105 mg/dL (80-110); HDL Cholesterol 34 mg/dL (40-60); HEMOLYSIS < 15 (0-50); LDL Cholesterol Calculated 69 mg/dL (<100); Potassium 4.4 mmol/L (3.4-5.1); Sodium 140 mmol/L (137-145); Total Protein 7.3 g/dL (6.3-8.2); Triglycerides 98 mg/dL (35-150)
[2018-07-19 09:59] LABS: Vitamin D 25 Hydroxy (D3) 87.5 ng/mL (30.0-100.0)
[2018-07-19 10:28] LABS: Prostate Specific Antigen < 0.064 ng/mL (0.10-4.00)
== END ==
PROVIDERS: PCP Student in an Organized Health Care Education/Training Program; Visit Provider Student in an Organized Health Care Education/Training Program
DX: E78.2 Mixed hyperlipidemia (principal); I10 Essential (primary) hypertension; Z79.899 Other long term (current) drug therapy; Z85.46 Personal history of malignant neoplasm of prostate; E55.9 Vitamin D deficiency, unspecified
CPT/HCPCS: 36415; 80053; 80061; 82306; 84153; 85027

== ENCOUNTER → 2019-12-09 14:23 | Outpatient (CLI) | payer OTHER, SELFPAY ==
[2019-12-10 20:55] LABS: COVID19 Sendout Not Detected (Not Detect)
== END ==
PROVIDERS: PCP Student in an Organized Health Care Education/Training Program; Visit Provider Physician Assistant
DX: Z11.59 Encounter for screening for other viral diseases (principal)
CPT/HCPCS: 87635

== ENCOUNTER → 2020-04-09 10:35 | Outpatient (CLI) | payer OTHER, SELFPAY ==
[2020-04-09 12:27] LABS: BUN Creatinine Ratio 16.7 (6-22); Blood Urea Nitrogen 17 mg/dL (9-20); Carbon Dioxide 33 mmol/L (22-32); Chloride 99 mmol/L (98-107); Estimated Glomerular Filt Rate > 60.0 mL/min (>60); Glucose 128 mg/dL (80-110); HEMOLYSIS < 15 (0-50); Potassium 4.1 mmol/L (3.4-5.1); Sodium 139 mmol/L (137-145)
[2020-04-09 12:58] LABS: Prostate Specific Antigen < 0.064 ng/mL (0.10-4.00)
== END ==
PROVIDERS: PCP Student in an Organized Health Care Education/Training Program; Referring Provider Student in an Organized Health Care Education/Training Program; Visit Provider Student in an Organized Health Care Education/Training Program
DX: I10 Essential (primary) hypertension (principal); N52.31 Erectile dysfunction following radical prostatectomy
CPT/HCPCS: 36415; 80048; 84153

== ENCOUNTER → 2021-04-10 14:07 | Outpatient (CLI) | payer OTHER, SELFPAY ==
[2021-04-10 15:12] LABS: Blood Urea Nitrogen 10 mg/dL (9-20); Carbon Dioxide 32 mmol/L (22-32); Chloride 101 mmol/L (98-107); Estimated Glomerular Filt Rate > 60.0 mL/min (>60); Glucose 112 mg/dL (80-110); HEMOLYSIS < 15 (0-50); Potassium 3.9 mmol/L (3.4-5.1); Sodium 139 mmol/L (137-145)
[2021-04-10 15:47] LABS: Prostate Specific Antigen < 0.064 ng/mL (0.10-4.00)
== END ==
PROVIDERS: PCP Student in an Organized Health Care Education/Training Program; Referring Provider Student in an Organized Health Care Education/Training Program; Visit Provider Student in an Organized Health Care Education/Training Program
DX: I10 Essential (primary) hypertension (principal); Z85.46 Personal history of malignant neoplasm of prostate
CPT/HCPCS: 36415; 80048; 84153

== ENCOUNTER → 2022-04-13 13:17 | Outpatient (CLI) | payer OTHER, SELFPAY ==
[2022-04-13 14:40] LABS: BUN Creatinine Ratio 18.9 (6-22); Blood Urea Nitrogen 17 mg/dL (9-20); Calcium 9.8 mg/dL (8.4-10.2); Carbon Dioxide 27 mmol/L (22-32); Chloride 99 mmol/L (98-107); Estimated Glomerular Filt Rate > 60 mL/min (>60); Glucose 85 mg/dL (80-110); HEMOLYSIS < 15 (0-50); Potassium 4.3 mmol/L (3.4-5.1); Sodium 137 mmol/L (137-145)
[2022-04-13 15:10] LABS: Prostate Specific Antigen < 0.064 ng/mL (0.10-4.00)
== END ==
PROVIDERS: PCP Student in an Organized Health Care Education/Training Program; Referring Provider Student in an Organized Health Care Education/Training Program; Visit Provider Student in an Organized Health Care Education/Training Program
DX: I10 Essential (primary) hypertension (principal); Z85.46 Personal history of malignant neoplasm of prostate
CPT/HCPCS: 36415; 80048; 84153